=== PATIENT | female | born 1985 | race Hispanic/Latino ===

== ENCOUNTER 2025-02-14 00:11 | Emergency (ER) | payer MEDICAID ==
[2025-02-14 02:03] LABS: Bacteria/HPF 1+ HPF (None Seen); CAUTI Indications for Culture Dysuria,urgency,freq; Glucose, Urine (Dipstick) Normal (Negative); Leukocyte 500 Leu/uL (Negative); Protein, Urine (Dipstick) 10 mg/dL (Neg-Trace); RBC/HPF 0-3 HPF (0-3); Specific Gravity, Urine 1.015 (1.002-1.036); WBC/HPF Greater than 50 HPF (0-3)
[2025-02-14 02:04] LABS: Urine Culture Reflex Yes Yes
== END 2025-02-14 03:23 | disposition home or self-care (01) ==
LOC: ERS 00:11
DX: N39.0 Urinary tract infection, site not specified (principal)
CPT/HCPCS: 81001; 87077; 87086; 87186; 99283